=== PATIENT | male | born 1950 | race Caucasian/White ===

== ENCOUNTER → 2017-04-19 | Outpatient (CLI) | payer MEDICARE, BC | END | disposition home or self-care (01) | LOC: GMAB 10:54 | PROVIDERS: ATTEND Family Medicine | DX: R94.6 Abnormal results of thyroid function studies (principal); Z12.5 Encounter for screening for malignant neoplasm of prostate | CPT/HCPCS: 84439; 84443; 84481; G0103 ==

== ENCOUNTER 2018-01-13 05:40 | Day surgery (SDC) | payer MEDICARE, BC ==
[2018-01-13] MEDS ORDERED: TROP 1%/CYCLOPEN 1%/PHENYL 2% DROPS ONE (08:41)
[2018-01-13] MEDS ORDERED: MIDAZOLAM INJ 2 MG/2 ML VIAL ONE (12:43)
[2018-01-13] MEDS: PROPARACAINE 0.5% OPHTH SOL 15 ML BTTL ONE ×2 (13:25→14:59)
[2018-01-13] MEDS ORDERED: TOBRAMYCIN SULF 0.3 % OPHT SOL 1 DROP RIGHT_EYE ONE ×3 (13:25→15:20)
[2018-01-13] MEDS ORDERED: DEXAMETHASONE 0.1% OPHTH SOL 1 DROP RIGHT_EYE ONE ×2 (15:08→15:20)
[2018-01-13] MEDS ORDERED: BRIMONIDINE 0.2% OPHTH DROPS RIGHT_EYE ONE ×2 (15:09→15:20)
[2018-01-13 16:49] VITALS: BP 119/76; TEMP 97.7; O2SAT 98
== END 2018-01-13 16:05 | disposition home or self-care (01) ==
LOC: AMB 05:40
PROVIDERS: ATTEND Ophthalmology
DX: H25.11 Age-related nuclear cataract, right eye (principal)
CPT/HCPCS: 00142; 66984; J2250

== ENCOUNTER 2018-01-27 06:00 | Day surgery (SDC) | payer MEDICARE, BC ==
[2018-01-27] MEDS ORDERED: PROPARACAINE 0.5% OPHTH SOL 15 ML BTTL ONE (10:23)
[2018-01-27] MEDS ORDERED: TROP 1%/CYCLOPEN 1%/PHENYL 2% DROPS ONE (10:23)
[2018-01-27] MEDS ORDERED: MIDAZOLAM INJ 2 MG/2 ML VIAL ONE (12:20)
[2018-01-27] MEDS ORDERED: LIDOCAINE 1% PF 2 ML AMP INJ ONE (14:34)
[2018-01-27] MEDS ORDERED: DEXAMETHASONE 0.1% OPHTH SOL 1 DROP LEFT_EYE ONE ×2 (14:37→14:48)
[2018-01-27] MEDS ORDERED: BRIMONIDINE 0.2% OPHTH DROPS LEFT_EYE ONE ×2 (14:38→14:48)
[2018-01-27] MEDS ORDERED: TOBRAMYCIN SULF 0.3 % OPHT SOL 1 DROP LEFT_EYE ONE ×2 (14:38→14:48)
== END 2018-01-27 15:43 | disposition home or self-care (01) ==
LOC: AMB 06:00
PROVIDERS: ATTEND Ophthalmology
DX: H25.12 Age-related nuclear cataract, left eye (principal)
CPT/HCPCS: 00142; 66984; J2250

== ENCOUNTER 2019-05-26 11:53 | Emergency (ER) | payer MEDICARE ==
--- NOTE | 2019-05-26 12:21 | ED.PDOC ---
History of Present Illness - General Chief Complaint: Cardiovascular Problem Stated Complaint: Dizziness, palpitations, near syncope Time Seen by Provider: 05/26/19 12:06 - History of Present Illness Initial Comments: Patient is a 68 y.o. M w/ no known pmh who presents to the ED c/o dizziness. Reports that over the last week he has been having more frequent episodes of becoming lightheaded, feeling like he is going to pass out. Says symptoms typically occur when he is trying to sit up or stand, and improve upon lying flat. Denies any syncopal episodes. Said his mom had similar symptoms when she was his age and needed a pacemaker. He reports that he believes he had a stomach bug as he has been feeling bloated and having loose stools. He denies any chest pain, shortness of breath, fevers or chills. Allergies/Adverse Reactions: Allergies NO KNOWN ALLERGY Allergy (Verified 05/19/16 10:37) Home Medications: Ambulatory Orders NK 05/19/16 Review of Systems - Review of Systems Constitutional: Denies: chills, fever EENTM: States: no symptoms reported Respiratory: Denies: cough, short of breath Cardiology: Denies: chest pain, edema Gastrointestinal/Abdominal: States: diarrhea. Denies: abdominal pain Genitourinary: States: no symptoms reported Musculoskeletal: States: no symptoms reported Skin: States: no symptoms reported Neurological: States: no symptoms reported Endocrine: States: no symptoms reported Hematologic/Lymphatic: States: no symptoms reported All other Systems: Reviewed and Negative Past Medical History (General) - Patient Medical History Hx Seizures: No Hx Stroke: No Hx Dementia: No Hx Asthma: No Hx of COPD: No Hx Cardiac Disorders: No Hx Congestive Heart Failure: No Hx Pacemaker: No Hx Hypertension: No Hx Thyroid Disease: No Hx Diabetes: No Hx Gastroesophageal Reflux: No Hx Renal Disease: No Hx of HIV: No Hx MRSA: No - Vaccination History Hx Tetanus, Diphtheria Vaccination: Yes Hx Influenza Vaccination: No Hx Pneumococcal Vaccination: No - Social History Hx Tobacco Use: No Hx Alcohol Use: No Hx Substance Use: No Hx Substance Use Treatment: No Hx Depression: No - Female History Patient : No Family Medical History - Family History Mother Family History: Unknown Living Status: Unknown Progress - Progress Progress: 05/26/19 12:23 68 y.o. M presenting with presyncopal symptoms and palpitations. Overall well appearing. Plan for cardiac w/u, reassess. 05/26/19 13:33 Lab work unrevealing. patient reports being asymptomatic. He has previously seen Dr. Clements with cardiology. Will d/c with Holter monitor and cardiology f/u. - Results/Orders Results/Orders: XR chest, no acute findings 05/26/19 12:34 EKG Assessment ONCE 05/26/19 12:45 EKG STAT 05/26/19 13:16 Sodium Chloride 0.9% 1000ML [Ns 1000 ml] 1,000 ml IVS ONCE 05/26/19 13:32 Holter Monitor Assesment .ONCE 05/27/19 09:00 Holter Monitor Daily Laboratory Results - last 24 hr 05/26/19 05/26/19 05/26/19 12:15 12:15 12:15 WBC 6.9 RBC 4.62 L Hgb 14.3 Hct 42.6 MCV 92.3 MCH 30.9 MCHC 33.5 RDW 14.2 Plt Count 188 MPV 7.8 Absolute Neuts (auto) 5.00 Absolute Lymphs (auto) 1.20 Absolute Monos (auto) 0.50 Absolute Eos (auto) 0.10 Absolute Basos (auto) 0.10 Neutrophils % 73.2 Lymphocytes % 17.5 L Monocytes % 7.5 Eosinophils % 1.1 Basophils % 0.7 Sodium 134 L Potassium 4.1 Chloride 99 L Carbon Dioxide 23 Anion Gap 16.1 BUN 17 Creatinine 0.53 L BUN/Creatinine Ratio 32.1 H Random Glucose 100 Serum Osmolality 269.9 L Calcium 9.6 Magnesium 1.9 Total Bilirubin 0.6 AST 29 ALT 22 Alkaline Phosphatase 42 Troponin I < 0.02 Serum Total Protein 6.8 Albumin 4.2 Globulin 2.6 Albumin/Globulin Ratio 1.6 TSH 4.66 - EKG/XRAY/CT EKG: Sinus Comments: NSR @ rate of 90, IRBBB, no STEMI Departure - Departure Clinical Impression: Palpitations, Postural dizziness with presyncope Disposition: Discharge to Home or Self Care Departure Forms: ED Discharge - Pt. Copy, Patient Portal Self Enrollment Instructions: Palpitations (DC) Referrals: HAYLEY FRANCO MD [Primary Care Provider] - 1-2 Weeks VISH CLEMENTS MD [Consulting Staff] - 1-2 Weeks Home Medications: Ambulatory Orders NK 05/19/16 Additional Instructions: Please return to the ER if you have worsening symptoms, pass out or develop chest pain.
--- NOTE | 2019-05-26 13:04 | RAD ---
EXAM DESCRIPTION: Chest,2 Views CLINICAL HISTORY: 68 years Male, pain COMPARISON: Radiographs the chest dated 05/19/2016. TECHNIQUE: PA and lateral radiographs of the chest were obtained. FINDINGS: Trachea is midline.The cardiomediastinal silhouette is normal in size. The pulmonary vasculature is within normal limits. Blunting of the bilateral costophrenic angles could be secondary to small effusions and/or scarring. No evidence of pneumothorax. IMPRESSION: Blunting of the bilateral costophrenic angles could be secondary to small effusions and/or scarring.No evidence of pleural effusions. Electronically signed by: Mercedez Calderon MD 05/26/2019 1:03 PM CDT
[2019-05-26] MEDS ORDERED: SODIUM CHLORIDE 0.9% 1000ML 1,000 ML IVS ONE (13:16)
[2019-05-26 14:45] VITALS: BP 133/92; TEMP 97.4; O2SAT 98
== END 2019-05-26 14:45 | disposition home or self-care (01) ==
LOC: ER 11:53
DX: R42 Dizziness and giddiness (principal); R55 Syncope and collapse; R00.2 Palpitations; I45.10 Unspecified right bundle-branch block
CPT/HCPCS: 36415; 71046; 80053; 81001; 83735; 84443; 84484; 85025; 93005; J7030

== ENCOUNTER → 2019-06-30 | Outpatient (CLI) | payer MEDICARE | LOC: GMAE 10:31 | PROVIDERS: ATTEND Family Medicine | DX: E03.9 Hypothyroidism, unspecified (principal); Z12.5 Encounter for screening for malignant neoplasm of prostate; Z79.899 Other long term (current) drug therapy | CPT/HCPCS: 84439; 84443; 84481; G0103 ==

== ENCOUNTER 2020-07-22 04:54 | Day surgery (SDC) | payer MEDICARE ==
[2020-07-22] MEDS ORDERED: MOXIFLOXACIN HCL (OPHTH) 1 DROP DROPS ONE (05:50)
[2020-07-22] MEDS ORDERED: PROPARACAINE 0.5% OPHTH SOL 15 ML BTTL ONE ×2 (05:51→09:56)
[2020-07-22] MEDS ORDERED: TROP1%/CYCLOPEN 1%/PHENYL 2.5% DROPS ONE ×2 (05:51→09:56)
[2020-07-22] MEDS ORDERED: SODIUM CHLORIDE 0.9% (FLUSH) 10 ML SYG ONE (05:52)
[2020-07-22] MEDS ORDERED: TOBRAMYCIN SULF 0.3 % OPHT SOL 1 DROP RIGHT_EYE ONE (09:45)
== END 2020-07-22 11:30 | disposition home or self-care (01) ==
LOC: AMB 04:54
PROVIDERS: ATTEND Ophthalmology
DX: H26.491 Other secondary cataract, right eye (principal)
CPT/HCPCS: 66821; A4216